=== PATIENT | female | born 1965 | race Caucasian/White ===

== ENCOUNTER → 2017-11-02 | Outpatient (CLI) | payer OTHER ==
[~2017-11-02] MED LIST: CHOL5000 PO; FERR325T18 PO; FOLI400T PO; GABA300C5 PO; PANT40TA3 PO; PLAQ200T PO; VITA10002 PO
== END ==
LOC: CPRE 11:46
PROVIDERS: ATTEND Obstetrics & Gynecology
DX: Z01.818 Encounter for other preprocedural examination (principal)

== ENCOUNTER 2017-11-10 05:25 | Observation (INO) | payer OTHER ==
[~2017-11-10] VITALS: Ht 170.2 cm; Wt 84.2 kg
[~2017-11-10 05:25] MED LIST changes: -GABA300C5 PO
[2017-11-10] MEDS ORDERED: LACTATED RINGER'S 1000 ML IV PRN (05:45)
[2017-11-10] MEDS ORDERED: SODIUM CHLORID 0.9% 500 ML IV PRN (05:45)
[2017-11-10] MEDS ORDERED: CHLORHEXIDINE GLUCONATE 2 % 1 PACK (2 CLOTHS) TOPICAL PRN (05:45)
[2017-11-10] MEDS ORDERED: POVIDONE IODINE 5% (ANTISEPSIS KIT) 4 APPLICATIONS EACH NARE PRN (05:45)
[2017-11-10] MEDS ORDERED: METOPROLOL TARTRATE 25 MG TAB PO PRN (05:45)
[2017-11-10] MEDS ORDERED: ceFAZolin 2 GM PREMIX 50 ML IV SCH (05:45)
[2017-11-10] MEDS ORDERED: GABA300C5 PO (06:16)
[2017-11-10] MEDS: CEFAZOLIN INJ 2,000 MG in SODIUM CHLORIDE 0.9% INJ 100 ML IV SCH ×2 (06:35→07:14)
[2017-11-10] MEDS ORDERED: ACETAMINOPHEN 1000 MG/100 ML 100 ML IV ONE (06:52)
[2017-11-10] MEDS ORDERED: VASOPRESSIN 20 UNITS/ML VIAL ONE (07:07)
[2017-11-10] MEDS ORDERED: LIDOCAINE 1%/EPINEPHrine 1:100,000 SOLN 30 ML VIAL ONE (07:07)
[2017-11-10] MEDS ORDERED: ESTROGENS CONJUGATED VAG CREA 15 APPL/30 GM TUBE ONE (07:08)
[2017-11-10] MEDS ORDERED: FUROSEMIDE 40 MG/4 ML VIAL ONE (07:08)
[2017-11-10] MEDS ORDERED: LIDOCAINE HCL 1% 50 ML VIAL ONE (07:14)
--- NOTE | 2017-11-10 07:40 | EKG ---
Date Performed: 11/10/2017 Time Performed: 06:48:56 PTAGE: 52 years EKG: Baseline artifact present Sinus rhythm NORMAL ECG NO PREVIOUS TRACING DOCTOR: Alfredo Perry Interpretating Date/Time 11/10/2017 07:39:31
[2017-11-10] MEDS ORDERED: DO NOT ADM ANY ANTICOAGULANT DRUGS PRN (09:04)
[2017-11-10] MEDS ORDERED: MIDAZOLAM HCL 2 MG/2 ML VIAL ONE (09:16)
[2017-11-10] MEDS ORDERED: LACTATED RINGER'S 1000 ML INJ 1,000 ML IV SCH (09:28)
[2017-11-10] MEDS ORDERED: ZOLPIDEM TARTRATE 5 MG TAB PO PRN (09:30)
[2017-11-10] MEDS ORDERED: HYDROmorphone HCL PF 1 MG/ML VIAL IVP PRN (09:30)
[2017-11-10] MEDS ORDERED: SODIUM CHLORIDE 0.9% FLUSH 10 ML FLUSH IV FLUSH PRN (09:30)
[2017-11-10] MEDS ORDERED: diphenhydrAMINE HCL 25 MG CAP PO PRN (09:30)
[2017-11-10] MEDS ORDERED: oxyCODONE/ACETAMINOPHEN 5 MG/325 MG TAB PO PRN ×2 (09:30)
[2017-11-10] MEDS ORDERED: ONDANSETRON HCL 4 MG/2 ML VIAL IVP PRN (09:30)
[2017-11-10] MEDS ORDERED: ONDANSETRON ODT 4 MG TAB PO PRN (09:30)
--- NOTE | 2017-11-10 09:44 | HHI.PR ---
Immediate Post Op Note Procedure Date: Nov 10, 2017 Pre Op Diagnosis: 1. Abnormal uterine bleeding 2. Dysmenorrhea 3. Fibroid uterus Post Op Diagnosis: Same as above Surgeon: Jb Minor Procedure Manager(s): None Procedure: Total vaginal hysterectomy Findings: 1. Normal external female genitalia vagina and cervix, limited view of pelvis after removal of uterus however grossly normal-appearing ovaries and fallopian tubes, Filshie clips present attached to fallopian tubes bilaterally. Additional Information: Dictation number: [id number]. Preoperative antibiotics: 2 g Ancef Complications: None Specimen(s) removed: Uterus and cervix to pathology routine Estimated blood loss: 100 cc Anesthesia: General Drains: None Fluids: 750 cc lactated Ringer's IVF Urinary Output (mLs): 150 Patient to: PACU Patient Condition: Good Jb Minor MD Nov 10, 2017 09:44
--- NOTE | 2017-11-10 10:01 | MP ---
cc: Jb Minor MD DATE OF OPERATION: 11/10/2017 DATE OF PROCEDURE: 11/10/2017 PREOPERATIVE DIAGNOSES: 1. Abnormal uterine bleeding. 2. Dysmenorrhea. 3. Fibroid uterus. POSTOPERATIVE DIAGNOSES: 1. Abnormal uterine bleeding. 2. Dysmenorrhea. 3. Fibroid uterus. SURGEON: Jb Minor MD BARTACKER SURGEON: None. PROCEDURE PERFORMED: Total vaginal hysterectomy. ESTIMATED BLOOD LOSS: 100 mL. URINE OUTPUT: 150 mL clear via Mcgee. FLUID REPLACEMENT: 750 mL Lactated Ringer's and Pitocin. ANTIBIOTICS: 2 grams Ancef preoperatively. SPECIMENS REMOVED: Uterus and cervix to pathology for routine. FINDINGS: 1. Normal external female genitalia, vagina and cervix. 2. Limited view of the pelvis after removal of the uterus; however, grossly normal-appearing ovaries and fallopian tubes, Filshie clips present attached to fallopian tubes bilaterally. ANESTHESIA: General endotracheal. DEEP VEIN THROMBOSIS PROPHYLAXIS: Sequential compression devices throughout the case. COUNTS: Correct x 2. TIMEOUT DONE: Correct. COMPLICATIONS: None. INDICATION FOR PROCEDURE: This patient is a 52-year-old female who was seen in outpatient setting for the above diagnoses and dispositioned for surgery. Please see H and P for further details and consents. DESCRIPTION OF PROCEDURE: The patient was taken to the operating room and placed in lithotomy position in candy cane stirrups after anesthesia was found to be adequate. The perineum and vagina were prepped and draped in sterile fashion. A Mcgee was inserted and clamped. A weighted speculum was placed posteriorly and a Beba anteriorly. The cervix was grasped with a tenaculum and at the cervicovaginal junction, 1% lidocaine with epinephrine was injected circumferentially; around 15 mL was used. A circumferential incision was made with a scalpel. The colpotomy was made posteriorly with mayos and a weighted [place] was placed. Using a transfixion suture, the uterosacrals were clamped, transected, and tied bilaterally. The peritoneum was entered anteriorly easily with mayos and a Beba was placed. Using serial clamp, cut, and tie technique up through the uterines, cardinals, uterosacrals and uteroovarian ligaments on either side, 0 Vicryl was used to secure these pedicles. The uterus was removed from the field. The pedicles were reinspected and found to be hemostatic. The pelvis was irrigated. The posterior vaginal mucosa was reaproximated to the periotoneum a running locking fashion and the anterior and posterior edges of the cuff were closed with running,unlocked 0 Vicryl, incorporating the uterosacrals bilaterally for pelvic support. The cuff was reinspected and found to be hemostatic. The Mcgee was removed and the patient tolerated the procedure well, and was transferred to PACU in stable condition. MD MASSIMO Brown/KD , 09:43 AM , 09:59 AM MTDTorrey
[2017-11-10] MEDS ORDERED: HYDROmorphone HCL PF 2 MG/ML VIAL IV PUSH PRN (10:45)
[2017-11-10 11:00] VITALS: BP 121/78; PULSE 81; RESP 16; TEMP 98.7; O2SAT 100
[2017-11-10] MEDS ORDERED: DOCUSATE SODIUM 100 MG CAP PO SCH (11:00)
[2017-11-10] MEDS ORDERED: LIDOCAINE HCL 1% PF 5 ML SYRINGE OTHER ONE (12:00)
[2017-11-10] MEDS ORDERED: GLYCOPYRROLATE 1 MG/5 ML SYRINGE IV PUSH ONE (12:00)
[2017-11-10] MEDS ORDERED: ROCURONIUM INJ 50 MG/5 ML SYRINGE IV PUSH ONE (12:00)
[2017-11-10] MEDS ORDERED: DEXAMETHASONE SOD PHOS 4 MG/ML VIAL IV ONE (12:00)
[2017-11-10] MEDS ORDERED: NEOSTIGMINE 5 MG/5 ML SYRINGE IV PUSH ONE (12:00)
[2017-11-10] MEDS ORDERED: PROPOFOL 200 MG/20 ML AMP IV ONE (12:00)
[2017-11-10] MEDS ORDERED: ONDANSETRON HCL 4 MG/2 ML VIAL IV ONE (12:00)
[2017-11-10] MEDS ORDERED: GABAPENTIN 100 MG CAP PO SCH (14:00)
[2017-11-10 18:11] VITALS: BP 126/78; PULSE 81; RESP 16; TEMP 98.4; O2SAT 100
[2017-11-10] MEDS ORDERED: SODIUM CHLORIDE 0.9% FLUSH 10 ML FLUSH IV FLUSH SCH (21:00)
--- NOTE | 2017-11-10 21:16 | HHI.DS ---
Discharge Summary Admission Date Nov 10, 2017 at 09:32 Admitting Diagnosis - Dysmenorrhea, AUB, planned hysterectomy Procedures Total vaginal hysterectomy Brief History 52 yo who was seen in the outpatient setting and TVH was planned, was performed today w/o complications, pt was meeting all post op goals and was prepared for discharge home on post op day zero. Pt Condition on Discharge: Good Discharge Disposition: Discharge Home Discharge Instructions DIET: Follow Instructions for: As Tolerated, No Restrictions Activities you can perform: Regular-No Restrictions Activities to avoid: Driving for 24 hrs, Lifting/Bending Follow up Referrals: HOSPICE ART THERAPIST - 2 Weeks @ [facility] with Jb Minor MD Additional Information Patient already given post op medications which include Percocet 5/325 #15, 0 refills, and gabapentin 300mg BID. Jb Minor MD Nov 10, 2017 21:16
== END 2017-11-10 20:47 | disposition home or self-care (01) ==
LOC: HSDC 05:25 → HSDI 09:32 → H1EA 10:05
PROVIDERS: ADMIT Obstetrics & Gynecology; ATTEND Obstetrics & Gynecology
DX: R93.9 Diagnostic imaging inconclusive due to excess body fat of patient (principal); N94.6 Dysmenorrhea, unspecified; D25.9 Leiomyoma of uterus, unspecified; N72 Inflammatory disease of cervix uteri; K21.9 Gastro-esophageal reflux disease without esophagitis; Z01.810 Encounter for preprocedural cardiovascular examination
CPT/HCPCS: 01962; 58260; 86850; 86900; 86901; 88307; 93005; 96374; G0378; J0131; J0690; J1100; J1170; J2250; J2405; J2710; J3010; J7120; J1940